=== PATIENT | female | born 1965 | race Caucasian/White ===

== ENCOUNTER 2018-11-21 11:13 | Emergency (ER) | payer OTHER ==
[2018-11-21 11:33] VITALS: TEMP 98.6; BMI 32.5
[2018-11-21] MEDS ORDERED: DIPHTH,PERTUSS(ACELL),TET 0.5 ML DISP.SYRIN IM ONE ×2 (12:01→12:18)
[2018-11-21 12:32] LABS: BASO % 0.7 % (0-2.0); EOS % 0.9 % (0-4.5); HEMATOCRIT 39.1 % (32.4-45.2); HEMOGLOBIN 13.1 GM/dL (10.7-15.3); MCH 32.3 pg (25.7-33.7); MCHC 33.5 g/dl (32.0-36.0); MEAN CELL VOLUME 96.4 fl (80-96); NEUT % 65.4 % (42.8-82.8); PLATELET COUNT 270 K/MM3 (134-434); RBC 4.05 M/mm3 (3.60-5.2); RDW 13.8 % (11.6-15.6); WHITE BLOOD COUNT 7.2 K/mm3 (4.0-10.0)
[2018-11-21 12:52] LABS: CALCIUM 8.4 mg/dL (8.5-10.1); CREATININE 0.4 mg/dL (0.55-1.3); POTASSIUM 4.3 mmol/L (3.5-5.1)
--- NOTE | 2018-11-21 12:53 | PDOC ---
Documentation entered by Miguel Hurt SCRIBE, acting as scribe for Cooper Estrada MD. Cooper Estrada MD: This documentation has been prepared by the Blu narayanan Daniel, SCRIBE, under my direction and personally reviewed by me in its entirety. I confirm that the documentation accurately reflects all work, treatment, procedures, and medical decision making performed by me. History of Present Illness - General Chief Complaint: Redness To Affected Area Stated Complaint: FACE SWELLING Time Seen by Provider: 11/21/18 11:41 History Source: Patient, [facility] Records Exam Limitations: No Limitations - History of Present Illness Initial Comments: 11/21/18 12:05 The patient is a 53 year old female with a past medical history of HLD, seizures , schizoaffective disorder, bipolar disorder, and depression brought in today from [facility] by EMS for evaluation of facial swelling. The patient reports that this is the third time she has had left sided facial swelling which she attributes to one of her teeth having a hole in it. She reports in the past, the swelling resolved with antibiotics. She also reports that when she was getting into the ambulance she hit her right leg on a step and sustained a cut. Per staff at [facility], [place], the swelling was new since this morning. Staff has no further history for us. Patient denies headache, lightheadedness, focal weakness/numbness. Denies fever , chills. Denies chest pain, shortness of breath. Denies nausea, vomiting, diarrhea, abdominal pain. Allergies: NKA Past History - Past Medical History Allergies/Adverse Reactions: Allergies Allergy/AdvReac Type Severity Reaction Status Date / Time No Known Allergies Allergy Verified 11/21/18 11:26 Home Medications: Ambulatory Orders Amox-Tr/K Cl [Augmentin - 875Mg Tablet] 1 tab PO BID #14 tablet 11/21/18 COPD: No Hypercholesterolemia: Yes Psychiatric Problems: Yes Seizures: Yes - Suicide/Smoking/Psychosocial Hx Smoking History: Current every day smoker Number of Cigarettes Smoked Daily: 10 Information on smoking cessation initiated: No Hx Alcohol Use: Yes Drug/Substance Use Hx: Yes Review of Systems - Review of Systems Able to Perform ROS?: Yes Comments:: 11/21/18 12:06 GENERAL/CONSTITUTIONAL: No fever or chills. No weakness. HEAD, EYES, EARS, NOSE AND THROAT: +left facial swelling. No change in vision. No ear pain or discharge. No sore throat. GASTROINTESTINAL: No nausea, vomiting, diarrhea or constipation. GENITOURINARY: No dysuria, frequency, or change in urination. CARDIOVASCULAR: No chest pain or shortness of breath. RESPIRATORY: No cough, wheezing, or hemoptysis. MUSCULOSKELETAL: No joint or muscle swelling or pain. No neck or back pain. SKIN: +laceration to right gaines. No rash NEUROLOGIC: No headache, vertigo, loss of consciousness, or change in strength/ sensation. ENDOCRINE: No increased thirst. No abnormal weight change. HEMATOLOGIC/LYMPHATIC: No anemia, easy bleeding, or history of blood clots. ALLERGIC/IMMUNOLOGIC: No hives or skin allergy. *Physical Exam - Vital Signs Last Vital Signs Temp Pulse Resp BP Pulse Ox 98.6 F 71 18 130/69 100 11/21/18 11:27 11/21/18 11:27 11/21/18 11:27 11/21/18 11:27 11/21/18 11:27 - Physical Exam Comments: 11/21/18 12:43 GENERAL: Awake, alert, and fully oriented, in no acute distress HEAD: +edema to L face EYES: PERRLA, EOMI, sclera anicteric, conjunctiva clear ENT: Nares patent, poor dentition to L upper molars with buccal edema and ttp. ~ 1cm area of fluctuance over L upper gingiva adjacent to teeth 15-16 NECK: Normal ROM, supple, no lymphadenopathy, JVD, or masses LUNGS: Breath sounds equal, clear to auscultation bilaterally. No wheezes, and no crackles HEART: Regular rate and rhythm, normal S1 and S2, no murmurs, rubs or gallops ABDOMEN: Soft, nontender, normoactive bowel sounds. No guarding, no rebound. No masses EXTREMITIES: Normal range of motion, no edema. No cords, erythema, or tenderness NEUROLOGICAL: Normal speech, cranial nerves intact, 5/5 strength in all 4 extremities, normal sensation to light touch in all 4 extremities, normal cerebellar exam, normal gait, normal tone SKIN: +superficial 0.75cm linear laceration to R anterior gaines Procedures - Laceration/Wound Repair Right Anterior Leg Wound Length: to 2.5 cm Wound Explored: clean Wound's Depth, Shape: superficial Irrigated w/ Saline: Yes Anesthesia: 1% Lidocaine Amount of Anesthetic (ccs): 3 Wound Debrided: minimal Wound Repaired With: Sutures Suture Size/Type: 4:0 Number of Sutures: 1 Layer Closure: No Sterile Dressing Applied: Yes Splint Applied: No Sling Applied: No ED Treatment Course - LABORATORY CBC & Chemistry Diagram: 11/21/18 12:10 11/21/18 12:02 - ADDITIONAL ORDERS Additional order review: 11/21/18 12:10 RBC 4.05 MCV 96.4 H MCHC 33.5 RDW 13.8 MPV 8.0 Neutrophils % 65.4 Lymphocytes % 20.0 Monocytes % 13.0 H Eosinophils % 0.9 Basophils % 0.7 - RADIOLOGY Radiology Studies Ordered: Category Date Time Status FACIAL BONES CT W/O CONTRAST [CT] Stat CT Scan 11/21/18 11:59 Ordered - Medications Given in the ED: ED Medications Discontinued Medications Generic Name Dose Route Start Last Admin Trade Name Freq PRN Reason Stop Dose Admin Diphtheria/Tetanus/Acell Pertussis 0.5 ml 11/21/18 12:01 11/21/18 12:24 Boostrix - IM 11/21/18 12:02 0.5 ml .ONCE ONE Administration Medical Decision Making - Medical Decision Making 11/21/18 12:52 53yo F presents to the ED with L facial edema, likely 2/2 adjacent dental abscess. Plan to check labs, CT facial bones, and initiate abx Pt also with superficial linear laceration which we will wash out and repair with suture 11/21/18 16:[address] facial bones with chronic mastoiditis and no evidence of abscess, but limited study Due to fluctuant gingival area on exam, will treat with augmentin BID x 7 days, however pt will need dental f/u Case discussed with Dr. Riky Mullins from [facility], [place] who will arrange dental f/u for pt Pt is clinically well appearing, tolerating secretions and PO Stable for return back to [facility] I discussed the physical exam findings, ancillary test results and final diagnoses with the patient. I answered all of the patient's questions. The patient was satisfied with the care received and felt comfortable with the discharge plan and treatment plan. The patient will call their primary care physician within 24 hours to arrange follow-up and will return to the Emergency Department with any new, persistent or worsening symptoms. *DC/Admit/Observation/Transfer Diagnosis at time of Disposition: Dental abscess - Discharge Dispostion Disposition: HOME Condition at time of disposition: Stable Decision to Admit order: No - Referrals - Patient Instructions Printed Discharge Instructions: Tooth Abscess Additional Instructions: Take augmentin twice a day for your tooth infection You must follow up with a dentist within 1-3 days for further management of your tooth infection Return to the emergency department if you have any new, worsening or concerning symptoms - Post Discharge Activity - Attestations Physician Attestion: 11/21/18 16:58 I, Dr. Cooper Estrada MD, attest that this document has been prepared under my direction and personally reviewed by me in its entirety. I further attest, that it accurately reflects all work, treatment, procedures and medical decision -making performed by me.
[2018-11-21] MEDS ORDERED: AMOX TR/POT CLAV 875MG/125MG TABLETS (FP) PO ONE (16:45)
[2018-11-21] MEDS ORDERED: AMOX TR/POT CLAV 875MG/125MG TABLETS (FP) ONE (16:54)
[2018-11-21 17:00] VITALS: BP 135/71; PULSE 70
== END 2018-11-21 18:30 | disposition home or self-care (01) ==
LOC: JER 11:13
PROC: 0HQKXZZ Repair Right Lower Leg Skin, External Approach (ICD-10-PCS; principal; 2018-11-21)
DX: S81.811A Laceration without foreign body, right lower leg, initial encounter (principal); K04.7 Periapical abscess without sinus; F17.210 Nicotine dependence, cigarettes, uncomplicated; E78.00 Pure hypercholesterolemia, unspecified; R56.9 Unspecified convulsions; E78.5 Hyperlipidemia, unspecified; F25.9 Schizoaffective disorder, unspecified; F31.9 Bipolar disorder, unspecified; X58.XXXA Exposure to other specified factors, initial encounter; Y93.89 Activity, other specified; Y92.89 Other specified places as the place of occurrence of the external cause
CPT/HCPCS: 36415; 70486-TC; 80048; 85025; 90715; 99282-25

== ENCOUNTER 2018-12-01 10:48 | Emergency (ER) | payer OTHER ==
[2018-12-01 10:57] VITALS: BP 116/65; PULSE 82; TEMP 97.8; BMI 32.5
--- NOTE | 2018-12-01 10:58 | PDOC ---
Rapid Medical Evaluation Time Seen by Provider: 12/01/18 10:54 Medical Evaluation: Allergies Allergy/AdvReac Type Severity Reaction Status Date / Time No Known Allergies Allergy Verified 12/01/18 10:55 12/01/18 10:55 I have performed a brief in-person evaluation ofthis patient. The patient presents with a chief complaint of: suture removal Pertinent physical exam findings: suture to R anterior gaines, denies NVD I have ordered the following: nothing The patient will proceed to the ED for further evaluation.
--- NOTE | 2018-12-01 11:35 | PDOC ---
Suture Removal/Wound Check HPI - History of Present Illness Chief Complaint: Suture/Staple Removal(Here) Stated Complaint: STITCH REMOVAL Time Seen by Provider: 12/01/18 10:54 History Source: Yes: Patient Exam Limitations: Yes: No Limitations Treated at: [facility] Date of Last ED visit: 11/21/18 - Previous ED Treatment Type of procedure performed on last visit: Yes: Laceration Repair Antibiotics Prescribed: No - Onset of Previous Treatment Date of Occurence: 11/21/18 Comment:: 12/01/18 11:36 Patient returns to ED for suture removal. Denies fever, chills, N/V/D. Denies pain to leg. 1 suture removed from well-healing lac to R anterior gaines. No erythema, swelling, warmth. No complications. Wound site covered with bandage. Past History - Past Medical History Allergies/Adverse Reactions: Allergies Allergy/AdvReac Type Severity Reaction Status Date / Time No Known Allergies Allergy Verified 12/01/18 10:55 Home Medications: Ambulatory Orders Amox-Tr/K Cl [Augmentin - 875Mg Tablet] 1 tab PO BID #14 tablet 11/21/18 Atorvastatin Ca [Lipitor] 10 mg PO HS 11/21/18 Divalproex [Depakote -] 1,000 mg PO DAILY 11/21/18 Fluticasone/Vilanterol [Breo Ellipta 100-25 Mcg INH] 1 each IH DAILY 11/21/18 Multivitamins [Tab-A-Vit -] 1 tab PO DAILY 11/21/18 Phenytoin Sodium Extended 100 mg PO BID 11/21/18 Quetiapine Fumarate [Seroquel] 350 mg PO HS 11/21/18 COPD: No Hypercholesterolemia: Yes Psychiatric Problems: Yes Seizures: Yes - Suicide/Smoking/Psychosocial Hx Smoking History: Current every day smoker Number of Cigarettes Smoked Daily: 10 Information on smoking cessation initiated: No Hx Alcohol Use: No Drug/Substance Use Hx: No *Physical Exam - Vital Signs Last Vital Signs Temp Pulse Resp BP Pulse Ox 97.8 F 82 16 116/65 95 12/01/18 10:55 12/01/18 10:55 12/01/18 10:55 12/01/18 10:55 12/01/18 10:55 *DC/Admit/Observation/Transfer Diagnosis at time of Disposition: Encounter for removal of sutures - Discharge Dispostion Disposition: NURSING HOME FACILITY Condition at time of disposition: Improved Decision to Admit order: No - Referrals Referrals: Riky Mullins [Primary Care Provider] - - Patient Instructions Printed Discharge Instructions: DI for Suture Removal - Post Discharge Activity
== END 2018-12-01 11:45 | disposition home or self-care (01) ==
LOC: JERFT 10:48
DX: Z48.02 Encounter for removal of sutures (principal)
CPT/HCPCS: 99281-25